=== PATIENT | female | born 1965 | race Caucasian/White ===

== ENCOUNTER 2018-06-24 17:01 | Inpatient (IN) | payer OTHER ==
[~2018-06-24] VITALS: Ht 157.5 cm; Wt 63.5 kg
[~2018-06-24 17:01] MED LIST: CALC-71 PO; IBUP200T77 PO
--- NOTE | 2018-06-24 17:23 | PHYS DOC ---
Past Medical History Past Medical History: Other Additional Past Medical Histor: SI and depression Past Surgical History: Hysterectomy, Tonsillectomy Alcohol Use: Heavy Drug Use: None Adult General Chief Complaint Chief Complaint: OVERDOSE HPI HPI Patient is a 53-year-old female who presents to the emergency department for evaluation. According to EMS, the patient reportedly took a handful of pills at around 3 PM today. EMS reported that the patient had informed him that this was an attempt to end her life, and she has a history of suicide attempts in the past. The patient is evasive as to why she was taking medications when I ask her about it, she states that she was just trying to "quiet things down". She does admit to drinking 5 margaritas earlier in the day and does appear to be under the influence of alcohol. It is unclear who called EMS, the patient states that it was not her who called the ambulance. She is not having any other complaints of pain at this time. She is somewhat of a limited historian secondary to her intoxication. The patient reports that the pills that she took were pain medication, EMS did find a bottle of 5/325 hydrocodone/APAP pills which the patient states prolonged due to her ex-. The patient may have also taken some melatonin pills. Patient's arrived in the emergency department and stated that he is from the patient, and she sent him a text today to the effect that she was tired of being alone and taking a handful of pills in an attempt to end her life. Review of Systems Review of Systems Unable to obtain review of systems secondary to intoxication and an unreliable patient Current Medications Current Medications Current Medications Medications (Trade) Dose Ordered Sig/Patrick Start Time Stop Time Status Last Admin Dose Admin Naloxone HCl (Narcan) 0.4 mg 1X ONCE 06/24/18 17:30 06/24/18 17:31 DC 06/24/18 17:45 0.4 MG Sodium Chloride 1,000 ml @ 1,000 mls/hr Q1H 06/24/18 17:30 06/24/18 18:29 DC 06/24/18 17:45 1,000 MLS/HR Allergies Allergies Allergies Coded Allergies Type Severity Reaction Last Updated Verified No Known Drug Allergies 02/08/14 No Physical Exam Physical Exam PHYSICAL EXAM: CONSTITUTIONAL: Well developed, well nourished HEAD: normocephalic, atraumatic EENT: PERRL, EOMI. Conjunctivae are injected bilaterally, there is lateral nystagmus present, sclerae non-icteric; moist mucous membranes. NECK: Supple, non-tender; no meningismus. LUNGS: Lungs CTA, breathing even and unlabored. Normal air movement. HEART: Regular rate and rhythm, no murmur CHEST: No deformity; non-tender ABDOMEN: The abdomen is soft, and non-tender, no masses or bruits. EXTREM: Normal ROM; no deformity, no calf tenderness. Normal pulses palpable in all extremities. There is no pedal edema. SKIN: No rash; no diaphoresis NEURO: Alert; normal speech and cognition; CN's grossly intact; strength grossly intact without focal deficit. BACK: No CVA TTP. PSYCHIATRIC: The patient currently denies suicidal ideation. Current Patient Data Vital Signs Vital Signs Date Time Temp Pulse Resp B/P (MAP) Pulse Ox O2 Delivery O2 Flow Rate FiO2 06/24/18 18:37 77 12 98/68 (78) 99 Room Air 06/24/18 17:01 97.8 97.8 Lab Values Laboratory Tests Test 06/24/18 17:15 06/24/18 17:25 White Blood Count 9.2 x10^3/uL (4.0-11.0) Red Blood Count 3.99 x10^6/uL (3.50-5.40) Hemoglobin 13.0 g/dL (12.0-15.5) Hematocrit 36.3 % (36.0-47.0) Mean Corpuscular Volume 91 fL (79-100) Mean Corpuscular Hemoglobin 33 pg (25-35) Mean Corpuscular Hemoglobin Concent 36 g/dL (31-37) Red Cell Distribution Width 13.0 % (11.5-14.5) Platelet Count 294 x10^3/uL (140-400) Neutrophils (%) (Auto) 44 % (31-73) Lymphocytes (%) (Auto) 46 % (24-48) Monocytes (%) (Auto) 7 % (0-9) Eosinophils (%) (Auto) 3 % (0-3) Basophils (%) (Auto) 1 % (0-3) Neutrophils # (Auto) 4.0 x10^3uL (1.8-7.7) Lymphocytes # (Auto) 4.2 x10^3/uL (1.0-4.8) Monocytes # (Auto) 0.7 x10^3/uL (0.0-1.1) Eosinophils # (Auto) 0.3 x10^3/uL (0.0-0.7) Basophils # (Auto) 0.1 x10^3/uL (0.0-0.2) Sodium Level 145 mmol/L (136-145) Potassium Level 3.3 mmol/L (3.5-5.1) L Chloride Level 109 mmol/L (98-107) H Carbon Dioxide Level 23 mmol/L (21-32) Anion Gap 13 (6-14) Blood Urea Nitrogen 11 mg/dL (7-20) Creatinine 0.7 mg/dL (0.6-1.0) Estimated GFR (Cockcroft-Gault) 87.2 BUN/Creatinine Ratio 16 (6-20) Glucose Level 153 mg/dL (70-99) H Calcium Level 8.5 mg/dL (8.5-10.1) Magnesium Level 2.0 mg/dL (1.8-2.4) Total Bilirubin 0.2 mg/dL (0.2-1.0) Aspartate Amino Transferase (AST) 22 U/L (15-37) Alanine Aminotransferase (ALT) 28 U/L (14-59) Alkaline Phosphatase 120 U/L (46-116) H Total Protein 7.1 g/dL (6.4-8.2) Albumin 3.2 g/dL (3.4-5.0) L Albumin/Globulin Ratio 0.8 (1.0-1.7) L Salicylates Level < 2.8 mg/dL (2.8-20.0) L Salicylate Last Dose Date Salicylate Last Dose Time Acetaminophen Level 20.8 mcg/ml (10-30) Acetaminophen Last Dose Date Acetaminophen Last Dose Time Ethyl Alcohol Level 178 mg/dL (0-10) H Urine Collection Type U cath Urine Color Yellow Urine Clarity Clear Urine pH 6.0 Urine Specific [place] <=1.005 Urine Protein Negative mg/dL (NEG-TRACE) Urine Glucose (UA) Negative mg/dL (NEG) Urine Ketones (Stick) Negative mg/dL (NEG) Urine Blood Negative (NEG) Urine Nitrite Negative (NEG) Urine Bilirubin Negative (NEG) Urine Urobilinogen Dipstick 0.2 mg/dL (0.2 mg/dL) Urine Leukocyte Esterase Negative (NEG) Urine RBC 0 /HPF (0-2) Urine WBC Occ /HPF (0-4) Urine Transitional Epithelial Cells Few /LPF Urine Bacteria 0 /HPF (0-FEW) Urine Opiates Screen Pos (NEG) Urine Methadone Screen Neg (NEG) Urine Barbiturates Neg (NEG) Urine Phencyclidine Screen Neg (NEG) Urine Amphetamine/Methamphetamine Neg (NEG) Urine Benzodiazepines Screen Pos (NEG) Urine Cocaine Screen Neg (NEG) Urine Cannabinoids Screen Neg (NEG) Urine Ethyl Alcohol Pos (NEG) Laboratory Tests 06/24/18 17:15 Laboratory Tests 06/24/18 17:15 EKG EKG [Sinus rhythm at a rate of 84 bpm, normal axis, normal intervals. There are no acute ischemic ST/T changes.] Radiology/Procedures Radiology/Procedures [] Course & Med Decision Making Course & Med Decision Making Pertinent Labs and Imaging studies reviewed. (See chart for details) []Patient's condition remained stable. She was seen by the mental health assessment team, and they do not think that the patient will be able to be placed tonight, as most psychiatric facilities require 24-hour medical observation before excepting overdose patient. I spoke with the hospitalist will admit the patient for further evaluation and treatment. Dragon Disclaimer Dragon Disclaimer This electronic medical record was generated, in whole or in part, using a voice recognition dictation system. Departure Departure Impression: Primary Impression: Overdose Additional Impressions: Suicide attempt Alcohol intoxication Disposition: ADMITTED INPATIENT Admitting Physician: Jared Ellis Condition: STABLE Referrals: MONAE ARREDONDO MD (PCP) Problem Qualifiers SHIRLEY GRANADOS MD Jun 24, 2018 17:22
[2018-06-24 17:24] LABS: BASO # 0.1 x10^3/uL (0.0-0.2); BASO % 1 % (0-3); EOS # 0.3 x10^3/uL (0.0-0.7); EOS % 3 % (0-3); HEMATOCRIT 36.3 % (36.0-47.0); LYMPH # 4.2 x10^3/uL (1.0-4.8); LYMPH % 46 % (24-48); MEAN CORPUSCULAR HEMOGLOBIN 33 pg (25-35); MEAN CORPUSCULAR HGB CONC 36 g/dL (31-37); MEAN CORPUSCULAR VOLUME 91 fL (79-100); MONO # 0.7 x10^3/uL (0.0-1.1); MONO % 7 % (0-9); NEUT % 44 % (31-73); PLATELET COUNT 294 x10^3/uL (140-400); RED BLOOD COUNT 3.99 x10^6/uL (3.50-5.40); WHITE BLOOD COUNT 9.2 x10^3/uL (4.0-11.0)
[2018-06-24] MEDS ORDERED: NALOXONE 0.4 MG/ML VIAL. IV ONE (17:30)
[2018-06-24] MEDS ORDERED: IV NORMAL SALINE 1000ML BAG 1,000 ML IV SCH (17:30)
[2018-06-24 17:34] LABS: CALCIUM 8.5 mg/dL (8.5-10.1); CREATININE 0.7 mg/dL (0.6-1.0); GFR 87.2; POTASSIUM 3.3 mmol/L (3.5-5.1)
[2018-06-24 17:38] LABS: ACETAMIN 20.8 mcg/ml (10-30); ETHANOL 178 mg/dL (0-10); SALIC < 2.8 mg/dL (2.8-20.0)
[2018-06-24 17:39] LABS: ALBUMIN 3.2 g/dL (3.4-5.0); ALBUMIN/GLOBULIN RATIO 0.8 (1.0-1.7); TOTAL BILIRUBIN 0.2 mg/dL (0.2-1.0); TOTAL PROTEIN 7.1 g/dL (6.4-8.2)
--- NOTE | 2018-06-24 17:41 | EKG ---
[facility] [address] [place] [address] Test Date: 2018-06-24 Test Time: 17:21:21 Pat Name: AMINA RAE Department: Room: Gender: Female Graphite Grinder: : 1965 Requested By: SHIRLEY GRANADOS Order Number: [id number] Reading MD: Mal Deleon Measurements Intervals [place] Rate: 84 P: 56 MO: 148 QRS: 6 QRSD: 84 T: 34 QT: 394 QTc: 469 Interpretive Statements SINUS RHYTHM Electronically Signed On 06-27-2018 17:21:14 CYTOLOGY MANAGER by Mal Deleon
[2018-06-24 17:43] LABS: BILIRUBIN,URINE NEGATIVE (NEG); CLARITY,URINE CLEAR; COLOR,URINE YELLOW; NITRITE,URINE NEGATIVE (NEG); PROTEIN,URINE NEGATIVE (NEG-TRACE); UROBILINOGEN,URINE 0.2 mg/dL (0.2 mg/dL)
[2018-06-24 17:54] LABS: BARBITURATES NEG (NEG); BENZODIAZEPINES POS (NEG); CANNABINOIDS NEG (NEG); COCAINE NEG (NEG); METHADONE NEG (NEG); OPIATES POS (NEG); PHENCYCLIDINE NEG (NEG)
[2018-06-24 17:59] LABS: AMPHETAMINE/METHAMPHETAMINE NEG (NEG)
[2018-06-24 18:03] LABS: BACTERIA,URINE 0 /HPF (0-FEW); RBC,URINE 0 /HPF (0-2); WBC,URINE OCC /HPF (0-4)
[2018-06-24 19:33] LABS: ACETAMIN 18.8 mcg/ml (10-30)
--- NOTE | 2018-06-24 20:00 | NUR ---
The patient, AMINA RAE, 53 y/o, F admitted by NOBLE MENDES MD, was given written information regarding hospital policies, unit procedures and contact persons, one on staff in room with patient. Valuables were checked and left in her closet.
[2018-06-24 23:00] VITALS: BP 91/55
[2018-06-25 02:55] VITALS: BP 115/63
[2018-06-25 07:00] VITALS: BP 115/66
--- NOTE | 2018-06-25 09:10 | NUR ---
FUNMI phoned the PAT team for assessment. Juan M will come in to see pt. Pt was seen by PAT team in the ER and needs re-evaluation. FUNMI will continue to follow.
[2018-06-25 11:00] VITALS: BP 123/77
--- NOTE | 2018-06-25 11:48 | NUR ---
Patient verb. understanding POC to discharge this afternoon when Dr. Castañeda enters orders, Juan M GUILLERMO saw patient and OK for discharge with Prozac and f/u PCP. See notes and orders.
[2018-06-25] MEDS ORDERED: FLUO20CA16 PO (13:38)
--- NOTE | 2018-06-25 13:55 | NUR ---
Discharge instructions, medications and prescriptions reviewed with patient, she verb. understanding all instructions and denies questions. Patient ready for discharge when ride arrives, patient verb. she has all belongings.
--- NOTE | 2018-06-25 14:00 | NUR ---
Per Juan M pt is not SI and will f/U with PCP upon dc. Pt is aware to f/u with her insurance for mental health providers. Pt is cleared to dc home.
--- NOTE | 2018-06-25 14:14 | NUR ---
Patient discharge to home with all instructions, prescriptions and belongings with family.
--- NOTE | 2018-06-25 14:44 | SSS ---
ADMIT DATE: CHIEF COMPLAINT: Overdose. HISTORY OF PRESENT ILLNESS: The patient is a pleasant 53-year-old female who is possibly in the middle of a divorce. She states they have been talking about it. Last night she drank five Margaritas and then took a bottle of hydrocodone. Apparently, these hydrocodones were her 's. She has now been admitted for possible suicide attempt where she is being examined on the medical floor. She has a 1:1 observer. The psychiatric assessment team gentleman just arrived as well. We discussed the case after he talked to her. He feels like she is not suicidal at this time. We plan to discharge this afternoon. PAST MEDICAL HISTORY: Previous suicidal ideation, depression, hysterectomy, tonsillectomy. ALLERGIES: None. FAMILY HISTORY: Diabetes. SOCIAL HISTORY: She does not drink, smoke or take drugs, although she drinks socially. She is , maybe, going through a divorce. MEDICATIONS: Reviewed, please refer to the MRAD. She is on 3 including ibuprofen, Prozac and calcium. REVIEW OF SYSTEMS: GENERAL: No history of weight change, weakness or fevers. SKIN: No bruising, hair changes or rashes. EYES: No blurred, double or loss of vision. NOSE AND THROAT: No history of nosebleeds, hoarseness or sore throat. HEART: No history of palpitations, chest pain or shortness of breath on exertion. LUNGS: Denies cough, hemoptysis, wheezing or shortness of breath. GASTROINTESTINAL: Denies changes in appetite, nausea, vomiting, diarrhea or constipation. GENITOURINARY: No history of frequency, urgency, hesitancy or nocturia. NEUROLOGIC: Denies history of numbness, tingling, tremor or weakness. PSYCHIATRIC: She adamantly denies any suicidal ideation today, wants to go home. ENDOCRINE: No history of heat or cold intolerance, polyuria or polydipsia. EXTREMITIES: Denies muscle weakness, joint pain, pain on walking or stiffness. PHYSICAL EXAMINATION: VITAL SIGNS: Temperature afebrile, pulse 98, respirations 18, blood pressure 115/63. GENERAL: She is alert, cooperative, seems a little sad, but denies any suicidal ideation. HEART: Distant S1, S2. LUNGS: Clear. ABDOMEN: Soft. EXTREMITIES: Trace edema. SKIN: No rashes. ENDOCRINE: No thyromegaly. LYMPHATICS: No cervical lymphadenopathy. HEMATOPOIETIC: No bleeding or bruising. LABORATORY DATA: Electrolytes are normal other than a potassium of 3.3, glucose is 153. Hematology is normal. Urinalysis is normal. Drug screen positive for opiates and Tylenol and alcohol, which correlates with her story. ASSESSMENT AND PLAN: Resolving overdose secondary to depression with a combination of alcohol issues. The patient was admitted. We observed overnight. She is doing well. Denies suicidal ideation. We will go ahead and discharge with close outpatient followup. DISPOSITION: Home. ACTIVITY: As tolerated. DIET: Low sodium. MEDICATIONS: Please see MRAD. TOTAL TIME: 33 minutes. JAYSON GLEASON DO DR: ARELY/echo JOB#: [id number] / [id number]
== END 2018-06-25 14:15 | disposition home or self-care (01) | DRG 918 ==
LOC: ER 17:01 → 5 NORTH 18:50
PROVIDERS: ADMIT Family Medicine; ATTEND Family Medicine
DX: T40.601A Poisoning by unspecified narcotics, accidental (unintentional), initial encounter (principal); F10.129 Alcohol abuse with intoxication, unspecified; F32.9 Major depressive disorder, single episode, unspecified; Z83.3 Family history of diabetes mellitus; Z90.710 Acquired absence of both cervix and uterus; Y92.89 Other specified places as the place of occurrence of the external cause; Z91.5 Personal history of self-harm
CPT/HCPCS: 36415; 80053; 80307; 80329; 81001; 83735; 85025; 93005; 96361; 96374; G0480; G6039; J2310; J7030; 99285-25